=== PATIENT | female | born 1960 | race Caucasian/White ===

== ENCOUNTER 2018-02-12 08:12 | Day surgery (SDC) | payer OTHER ==
[2018-02-12] MEDS ORDERED: PROPOFOL 40 ML (09:36)
[2018-02-12] MEDS ORDERED: LIDOCAINE 100 MG SYRINGE (09:36)
== END 2018-02-12 12:11 | disposition home or self-care (01) ==
LOC: GIL 08:12
DX: Z12.11 Encounter for screening for malignant neoplasm of colon (principal); K29.50 Unspecified chronic gastritis without bleeding; D12.3 Benign neoplasm of transverse colon; K64.9 Unspecified hemorrhoids; R73.03 Prediabetes
CPT/HCPCS: 43239; 88305; 88312